=== PATIENT | female | born 1945 | race Caucasian/White ===

== ENCOUNTER 2016-07-08 08:54 | Inpatient (IN) | payer OTHER ==
[2016-07-08] MEDS ORDERED: MOTRIN PO ONE (09:33)
[2016-07-08] MEDS ORDERED: NS 1,000 ML IV ONE ×2 (09:33→11:28)
--- NOTE | 2016-07-08 09:40 | PROVIDER DOCUMENTATION ---
HPI-Fever - General Chief Complaint: Possible Sepsis-D Stated Complaint: POSS UTI Time Seen by Provider: 07/08/16 09:25 Source: patient, family Allergies/Adverse Reactions: Patient Allergies Allergy/AdvReac Type Severity Reaction Status Date / Time meperidine HCl * Allergy RASH Verified 07/08/16 09:49 [From Demerol] Home Medications: Home Medication List Medication Instructions Recorded Confirmed Last Taken Type Acetaminophen [Tylenol] 500 mg PO TID 07/08/16 07/08/16 07/08/16 08:00 History Atorvastatin Calcium [Lipitor] 40 mg PO DAILY 07/08/16 07/08/16 07/07/16 08:00 History Cranberry 400 mg PO BID 07/08/16 07/08/16 07/07/16 17:00 History Duloxetine [Cymbalta] 60 mg PO DAILY 07/08/16 07/08/16 07/07/16 21:00 History Hydrochlorothiazide 25 mg PO DAILY 07/08/16 07/08/16 07/07/16 08:00 History Hydrocodone/Acetaminophen [[place] 10 mg PO 07/08/16 07/07/16 17:00 History 10-325 Tablet] Lansoprazole [Prevacid] 30 mg PO DAILY 07/08/16 07/08/16 07/07/16 06:00 History Lorazepam [Ativan] 1 mg PO BID 07/08/16 07/08/16 07/07/16 21:00 History Meloxicam [Mobic] 7.5 mg PO DAILY 07/08/16 07/08/16 07/07/16 21:00 History Nortriptyline [Pamelor] 25 mg PO TID 07/08/16 07/08/16 07/07/16 17:00 History Pregabalin [Lyrica] 150 mg PO TID 07/08/16 07/08/16 07/07/16 17:00 History - History of Present Illness-Fever Nature of Presenting Problem: Pt is a 71 yof who came to the ED with a cc of high fever. Pt reports her fever was 103 this morning and her gave her 500mg of tylenol and it didn't bring the fever down. Pt reports she had these symptoms last year and she had a UTI. Fever Severity/Quality: reports: greater than 102 F Onset/Duration: reports: just prior to arrival Timing: reports: still present Fever Therapy [employer]: Initiated Tylenol Modifying Factors: improves with: nothing Associated Symptoms: reports: denies symptoms Similar Symptoms Previously?: No Recently seen or treated by another doctor?: No Review of Systems - Adult - REVIEW OF SYSTEMS - ADULT Constitutional: reports: chills, fever. denies: fatique, night sweats Eyes: reports: no symptoms reported Ears, Nose, Mouth & Throat: denies: sinus problem, mouth/dental pain Cardiovascular: denies: edema, poor circulation Respiratory: denies: hemoptysis, wheezing Gastrointestinal: reports: no symptoms reported Genitourinary: reports: no symptoms reported Musculoskeletal: reports: no symptoms reported Integumentary: reports: no symptoms reported Neurological: reports: no symptoms reported Psychiatric: reports: no symptoms reported Endocrine: reports: no symptoms reported Hematologic/Lymphatic: reports: no symptoms reported Allergic/Immunologic: reports: no symptoms reported All Other Systems: Reviewed and Negative Past History - Adult - PAST MEDICAL HISTORY-ADULT Review of Records: reports: Old Records Reviewed, Nursing Assessment Review Physical Exam-General - CONSTITUTIONAL General Appearance: appears well, alert, no apparent distress - EYES Eyes: PERRL/EOMI, pink conjunctivae, fundi clear, no AV nicking - HEAD, EARS, NOSE, MOUTH & THROAT HENMT: normocephalic/atraumatic, moist mucous membranes, normal ENT inspection, TMs normal, pharynx normal, other (dry lips) - NECK Neck: non-tender - RESPIRATORY Respiratory: chest non-tender, lungs clear, normal breath sounds, no pleuratic chest pain, no respiratory distress, no accessory muscle use - CARDIOVASCULAR Cardiovascular: normal peripheral pulses, regular rate, rhythm, no edema, no gallop, no JVD, no murmur - GASTROINTESTINAL (ABDOMEN) Abdominal Exam: normal bowel sounds, non tender, soft, no organomegaly, no pulsatile mass - MUSCULOSKELETAL Back Exam: normal inspection, no CVA tenderness, no vertebral tenderness, CVA tenderness Extremity: normal range of motion, non-tender, normal gait, normal inspection, no pedal edema, no calf tenderness, normal capillary refill - SKIN Integumentary: normal color, warm/dry - NEUROLOGIC Neurologic: grossly normal - PSYCHIATRIC Psych/Mental Status: normal mood/affect, normal thought content, normal thought process, oriented x 3 Progress - PLAN OF CARE/RESULTS Progress/Plan/Lab Results: Vital Signs - 24 hr 07/08/16 09:11 Temperature 103.0 F H Pulse Rate 107 H Respiratory 22 Rate Blood Pressure 133/58 O2 Sat by Pulse 95 Oximetry Orders Category Date Time Status Cardiac Monitoring DIRECTED Care 07/08/16 09:33 Active Saline Loc NOW Care 07/08/16 09:33 Active CHEST-PORTABLE [RAD] Stat Exams 07/08/16 09:33 Ordered BLOOD CULTURE [BLDCUL] Stat Lab 07/08/16 09:33 Uncollected CBC WITH ELECTRONIC DIFF [HEME] Stat Lab 07/08/16 09:33 Uncollected CK PROFILE [SP CHEM] Stat Lab 07/08/16 09:33 Uncollected COMPREHENSIVE METABOLIC PANEL [CHEM] Stat Lab 07/08/16 09:33 Uncollected LACTATE, PLASMA [CHEM] Stat Lab 07/08/16 09:33 Uncollected PROTIME WITH INR [COAG] Stat Lab 07/08/16 09:33 Uncollected PTT [COAG] Stat Lab 07/08/16 09:33 Uncollected TROPONIN T Stat Lab 07/08/16 09:33 Uncollected UA NIMS W/REFLEX CULT [URINALYSIS] Stat Lab 07/08/16 09:33 Uncollected 0.9% Sodium Chloride Inj [Ns] 1,000 ml Med 07/08/16 09:33 Active IV 999 mls/hr Ibuprofen [Motrin] Med 07/08/16 09:33 Discontinued 800 mg PO NOW ONE EKG [EKG] Stat Ther 07/08/16 09:33 Ordered - EKG 1 Time of EKG reading by physician:: 10:56 EKG Read and Signed by:: Chanda Leggett EKG Interpretation (*Must complete 3 of following elements*): Normal Rate: 88 Rhythm: sinus rhythm with premature atrial complexes - CONSULTS/PCP/HOSPITALIST Notification #1 *Consult/PCP/Hospitalist*: Dr. Jimenez Time Discussed: 14:33 Consult Disposition: Admit Departure - Departure Time of Disposition Order: 14:30 DIAGNOSIS: Leukocytosis Qualifiers: Leukocytosis type: unspecified Qualified Code(s): D72.829 - Elevated white blood cell count, unspecified Fever Qualifiers: Fever type: unspecified Qualified Code(s): R50.9 - Fever, unspecified UTI (urinary tract infection) Qualifiers: Urinary tract infection type: site unspecified Hematuria presence: without hematuria Qualified Code(s): N39.0 - Urinary tract infection, site not specified Disposition: ADMITTED INPATIENT Certified Medical Emergency: Emergent Condition: Stable Attestation - Scribe Verification/Attestation Scribe:: Clara Lee Acting as Scribe for:: Chanda Leggett Scribe documention review:: This chart was documented by a scribe and accurately reflects the service the provider performed and the decisions made by the provider.
[2016-07-08 09:51] LABS: MANUAL DIFF NEEDED? NO
[2016-07-08 10:15] LABS: BASO% 0.1 % (0.0-0.8); EOS# 0.01 X1000 (0.0-0.7); EOS% 0.1 % (0.0-10.0); HEMATOCRIT 33.8 % (37.0-47.0); HEMOGLOBIN 11.4 g/dL (12.0-16.0); IMM GRAN# 0.03 X1000 (0.0-0.04); IMM GRAN% 0.2 % (0.0-0.5); LYMPH# 1.43 X1000 (1.2-3.4); LYMPH% 9.1 % (20.5-51.1); MCH 29.8 PG (27-31); MCHC 33.7 g/dL (33-37); MCV 88.5 FL (81-99); MONO# 1.47 X1000 (0.11-0.59); MONO% 9.4 % (1.7-9.3); MPV 11.3 FL (7.4-10.4); NEUT% 81.1 % (42.2-75.2); PLT 187 X1000 (130-400); RBC 3.82 XMIL (4.2-5.4)
[2016-07-08 10:16] LABS: BILIRUBIN URINE NEGATIVE (NEGATIVE); BLOOD URINE MODERATE (NEGATIVE); COLOR YELLOW; GLUCOSE URINE NEGATIVE (NEGATIVE); LEUKOCYTES URINE SMALL (NEGATIVE); NITRITE URINE POSITIVE (NEGATIVE); PH URINE 5.5; PROTEIN URINE 70 mg/dL (NEGATIVE); SP GRAVITY URINE 1.017; TURBIDITY URINE HAZY (CLEAR); URINE MICRO REVIEW NEEDED? NO; URINE SOURCE CLEAN CATCH; UROBILINOGEN URINE NORMAL (NORMAL)
[2016-07-08 10:18] LABS: UR EPITHELIAL CELLS <10 /HPF (<10); URINE BACTERIA 4+ /HPF; URINE CULTURE NEEDED? YES
--- NOTE | 2016-07-08 10:25 | Diag Imaging Result Document ---
PROCEDURE NAME: CHEST-PORTABLE - 07/08/2016 PORTABLE CHEST X-RAY: COMPARISON: None. FINDINGS: The lungs are normally expanded and clear. Heart size and mediastinal contours are normal. No pneumothorax or pleural effusion. IMPRESSION: Negative exam.
[2016-07-08 10:29] LABS: ALBUMIN 3.6 g/dL (3.5-5.0); INR 1.09; POTASSIUM 3.6 mmol/L (3.5-5.1); PROTIME 11.6 Seconds (9.2-11.7); TOTAL BILIRUBIN 0.69 mg/dL (0.20-1.00); TOTAL PROTEIN 6.8 g/dL (6.3-8.3)
[2016-07-08] MEDS ORDERED: LEVAQUIN PO ONE (10:44)
[2016-07-08] MEDS ORDERED: ROCEPHIN 1 GM/NS 50 ML IV ONE (10:44)
[2016-07-08] MEDS ORDERED: NS 2,000 ML ONE (11:25)
--- NOTE | 2016-07-08 12:44 | EKG Report ---
Test Performed on : 07/08/2016 10:56:07 AM Test Reason : Chest Pain Blood Pressure : / mmHG Vent. Rate : 088 BPM Atrial Rate : 088 BPM P-R Int : 152 ms QRS Dur : 086 ms QT Int : 378 ms P-R-T Axes : 040 005 043 degrees QTc Int : 457 ms Sinus rhythm. with premature atrial complexes. Otherwise normal ECG When compared with ECG of 12-OCT-2007 14:25, premature atrial complexes. are now present Unconfirmed Result
[2016-07-08 13:18] LABS: HEMATOCRIT 31.2 % (37.0-47.0); HEMOGLOBIN 10.4 g/dL (12.0-16.0); MCH 30.2 PG (27-31); MCHC 33.3 g/dL (33-37); MCV 90.7 FL (81-99); MPV 10.8 FL (7.4-10.4); RBC 3.44 XMIL (4.2-5.4)
[2016-07-08] MEDS ORDERED: ZOFRAN IV PRN (16:14)
[2016-07-08] MEDS: PAMELOR PO SCH (16:54)
[2016-07-08] MEDS: TYLENOL PO SCH (16:54)
[2016-07-08] MEDS: NS 1,000 ML IV SCH (16:54)
[2016-07-08] MEDS: LYRICA PO SCH (16:54)
[2016-07-08] MEDS: NORCO-10 PO PRN (16:54)
--- NOTE | 2016-07-08 18:27 | HISTORY AND PHYSICAL ---
PRIMARY CARE PROVIDER: Dr. Marco Lei. PRIMARY PAIN DOCTOR: Dr. Rizvi. PRIMARY NEUROLOGIST: Dr. Landry. CHIEF COMPLAINT: Fever and chills. HISTORY OF PRESENT ILLNESS: Ms. Frey is a 71-year-old female who is in no acute distress. She is able to answer questions, most questions appropriately. Apparently she has been having symptoms since Monday night. She started having chills Monday night. Monday she started having more chills so they tried to make an appointment and could not get in by their appointment date. This morning she was found to have some disorientation with a fever of 103.3, so brought her here to [facility] ER. She was found to have a significant urinary tract infection, leukocytosis, and a fever of 103. Other vital signs have been stable. We will admit her to the medical floor for treatment of a urinary tract infection. 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 She had a dental crown fixed 13+ years ago and that is when the pain started. 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 SURGICAL HISTORY: She had a right eyelid weight placed and removed. Hysterectomy. She has had a neurotransmitter, neurostimulator placed and removed. She has had colonoscopies. SOCIAL HISTORY: Denies tobacco, or illicit drug use or alcohol. Lives at home with her . FAMILY HISTORY: Positive for cancer: Ovarian and breast. REVIEW OF SYSTEMS: Fourteen point review of systems were complete and all were negative except for those mentioned in the above HPI. She did state that she felt urinary frequency but denied dysuria or foul-smelling urine. ALLERGIES: Demerol. HOME MEDICATIONS: Ativan 1 mg in the morning, 2 mg at night. Lipitor 40 mg daily. Cranberry 400 mg p.o. twice daily. Cymbalta 60 mg nightly. Hydrochlorothiazide 25 mg p.o. daily. [place] 10 q.i.d. p.r.n. Prevacid 30 mg p.o. daily, Lyrica 150 mg p.o. t.i.d. Mobic 7.5 mg p.o. nightly. Nortriptyline 25 mg p.o. t.i.d. Tylenol 500 mg p.o. t.i.d. LABORATORY DATA: White blood cells 16,000, hemoglobin 10, hematocrit 31, platelet count 144,000. INR 1.09, PTT is 32. Sodium 136, potassium 3.6, BUN 20, creatinine is 1.6. Glucose 131, calcium 9.0, total bilirubin 0.69, AST 22, ALT 11. CK 156. Troponin 0.011. Total protein 6.8, albumin 3.6, lactate 0.9. Urinalysis; 70 protein, moderate blood, positive nitrites, small leukocytes, 10- 20 white blood cells, 4+ bacteria. IMAGING: Chest x-ray negative exam. EKG sinus rhythm with PACs rate of 88, QTc is 457. PHYSICAL EXAM: VITAL SIGNS: Temperature is now 98.6, it was 103 on admission. Heart rate 78, respiratory rate 13, blood pressure 115/60, O2 saturation 93% on room air. Height 5 feet 3 inches, 199 pounds, BMI 35.3. GENERAL: Ms. Frey is a 71-year-old female in no acute distress. Able to answer all questions appropriately. HEENT: Atraumatic, normocephalic. Right facial droop secondary to Valenzuela's palsy in 2006 which is chronic in nature. Mucous membranes are dry. NECK: No JVD or carotid bruits noted. CARDIOVASCULAR: S1, S2. Regular rate and rhythm. No rubs, gallops, murmurs. PULMONARY: Clear to auscultation. Bilateral breath sounds. No accessory muscle use or work of breathing noted. GASTROINTESTINAL: Soft, nontender, nondistended. Positive bowel sounds x4. EXTREMITIES: No edema noted. +2 dorsalis and radial pulses. NEUROLOGIC: Alert and oriented x4. Moves all extremities equally. Right facial droop that is chronic from Valenzuela's palsy in 2006. SKIN: Warm, dry, intact. ASSESSMENT AND PLAN: 1. Urinary tract infection with leukocytosis and significant fever up to 103. Will continue with Rocephin and Levaquin IV. If improves over the next 24 hours may possibly can go home on oral antibiotic regimen. She does have a history of chronic urinary tract infections. We will continue her home cranberry regimen. 2. History of hypertension. Continue home medications but hold the hydrochlorothiazide as are going to give IV fluid hydration. 3. Mild acute kidney injury secondary to dehydration, again with IV fluid hydration. 4. Hyperlipidemia. Continue home medications. 5. Mitral valve prolapse noted. 6. Gastroesophageal reflux disease and gastrointestinal prophylaxis. Continue her home proton pump inhibitor. 7. Atypical right facial pain related to the trigeminal neuralgia group. She follows Dr. Dow with Neurology and Dr. Rizvi with [facility] for a strict regimen to keep her pain at ease. She stays anywhere chronically from a pain level of 4 to 5. Her regimen includes 1 mg in the morning of Ativan and 2 mg at night, Cymbalta 60 mg in the evenings, hydrocodone and acetaminophen 10 mg 1 tab 4 times daily p.r.n., Lyrica 150 mg p.o. 3 times daily, Mobic 7.5 mg p.o. nightly, nortriptyline 25 mg p.o. 3 times daily, and Tylenol 500 mg p.o. 3 times daily. 8. Gastrointestinal prophylaxis. Proton pump inhibitor. 9. Deep venous thrombosis prophylaxis. Lovenox. Dictated by SONYA Gillis for Romain Myles MD
[2016-07-08] MEDS: LIPITOR PO SCH (20:48)
[2016-07-08] MEDS: CYMBALTA PO SCH (20:48)
[2016-07-08] MEDS: MOBIC PO SCH (20:48)
[2016-07-08] MEDS: ATIVAN PO SCH (20:49)
[2016-07-08] MEDS: PATIENT'S OWN MED PO SCH (20:52)
[2016-07-09] MEDS: NORCO-10 PO PRN ×2 (03:58→11:05)
[2016-07-09] MEDS: NS 1,000 ML IV SCH ×2 (04:00→16:18)
[2016-07-09 06:40] LABS: MANUAL DIFF NEEDED? NO
[2016-07-09 06:52] LABS: BASO% 0.1 % (0.0-0.8); EOS# 0.06 X1000 (0.0-0.7); EOS% 0.5 % (0.0-10.0); HEMATOCRIT 29.2 % (37.0-47.0); HEMOGLOBIN 9.7 g/dL (12.0-16.0); IMM GRAN# 0.02 X1000 (0.0-0.04); IMM GRAN% 0.2 % (0.0-0.5); LYMPH# 1.48 X1000 (1.2-3.4); LYMPH% 13.2 % (20.5-51.1); MCH 29.7 PG (27-31); MCHC 33.2 g/dL (33-37); MCV 89.3 FL (81-99); MONO# 0.98 X1000 (0.11-0.59); MONO% 8.8 % (1.7-9.3); MPV 10.9 FL (7.4-10.4); NEUT% 77.2 % (42.2-75.2); PLT 168 X1000 (130-400); RBC 3.27 XMIL (4.2-5.4)
[2016-07-09 06:58] LABS: AGAP 11; ALBUMIN 3.1 g/dL (3.5-5.0); ALKALINE PHOSPHATASE 57 U/L (32-104); BUN 12 mg/dL (8-22); CALCIUM 8.6 mg/dL (8.8-10.2); CHLORIDE 103 mmol/L (98-107); COSMO 280; GOT 17 U/L (10-30); GPT 10 U/L (10-36); MAGNESIUM 1.6 mg/dL (1.5-2.7); POTASSIUM 3.6 mmol/L (3.5-5.1); SODIUM 140 mmol/L (136-145); TCO2 26 mmol/L (25-35); TOTAL BILIRUBIN 0.41 mg/dL (0.20-1.00)
[2016-07-09 06:59] LABS: INR 1.15; PROTIME 12.2 Seconds (9.2-11.7); PTT 37.6 Seconds (22.0-36.0)
[2016-07-09] MEDS: ATIVAN PO SCH ×2 (08:24→20:40)
[2016-07-09] MEDS: TYLENOL PO SCH ×3 (08:24→17:55)
[2016-07-09] MEDS: PAMELOR PO SCH ×3 (08:24→17:55)
[2016-07-09] MEDS: LEVAQUIN 750 MG/D5W 150 ML IV SCH (08:25)
[2016-07-09] MEDS: LYRICA PO SCH ×3 (08:25→18:14)
[2016-07-09] MEDS: LOVENOX SUBQ SCH (08:25)
[2016-07-09] MEDS: PRILOSEC PO SCH (08:25)
[2016-07-09] MEDS: ROCEPHIN 1 GM/NS 50 ML IV SCH (08:25)
[2016-07-09] MEDS: PATIENT'S OWN MED PO SCH ×2 (08:26→20:42)
--- NOTE | 2016-07-09 13:16 | PROGRESS NOTE ---
DATE: 07/09/2016 SUBJECTIVE: Patient reports feeling fine. Denies any chills, fever, nausea or vomiting. OBJECTIVE: Vital Signs: Temperature 98.3 degrees, heart rate 79, respiratory rate 16, blood pressure 151/63, and O2 saturation 97% on room air. General examination: This is a 71-year-old, female, lying in bed in no acute distress. HEENT: Head is normocephalic, atraumatic. Anicteric sclerae and pale conjunctivae. Mucous membranes moist. Neck: Supple. No JVD noted. No carotid bruits. No lymphadenopathy. No thyromegaly. Cardiovascular exam: S1, S2 heard. No murmurs, gallops, or rubs. Regular rate and rhythm. Respiratory exam: Clear bilaterally to auscultation. No work of breathing or using accessory muscles. Abdomen: Soft, nontender to palpation. Bowel sounds present. No organomegaly. Extremities: No clubbing, cyanosis, or edema. Peripheral pulses present in both legs. Neurological exam: Patient alert and oriented x3. Able to move 4 extremities. Cranial nerves 2-12 grossly normal. LABORATORY DATA: White cell count 11.17, hemoglobin 9.7, hematocrit 29.2, platelets 168. INR 1.15 and the BMP is completely unremarkable. ASSESSMENT AND PLAN: 1. Urinary tract infection. Patient is afebrile since admission. Currently, she is on Rocephin and Levaquin. White cell count is almost back to normal. At this point, we will continue with intravenous fluid and the same antibiotic coverage. The patient had a history of chronic urinary tract infections, so we prefer definitely to wait for the results of the urine culture before discharging this patient. She will continue with cranberry juice also. 2. Hypertension. Blood pressure is well controlled. We will continue with the same management. 3. Acute kidney injury. That condition is completely resolved today. 4. Hyperlipidemia. We will continue home medications. 5. Atypical right facial pain related to trigeminal neurology. We will continue with the same home medications. 6. Mitral valve prolapse. Aware. 7. Gastroesophageal reflux disease. Patient is on Protonix.
[2016-07-09] MEDS: LIPITOR PO SCH (20:39)
[2016-07-09] MEDS: MOBIC PO SCH (20:39)
[2016-07-09] MEDS: CYMBALTA PO SCH (20:39)
[2016-07-10] MEDS: NORCO-10 PO PRN ×2 (00:27→08:13)
[2016-07-10] MEDS: NS 1,000 ML IV SCH (03:24)
[2016-07-10 07:36] VITALS: BP 154/71
[2016-07-10] MEDS: ROCEPHIN 1 GM/NS 50 ML IV SCH (08:13)
[2016-07-10] MEDS: LYRICA PO SCH (08:14)
[2016-07-10] MEDS: PRILOSEC PO SCH (08:14)
[2016-07-10] MEDS: ATIVAN PO SCH (08:14)
[2016-07-10] MEDS: TYLENOL PO SCH (08:14)
[2016-07-10] MEDS: LOVENOX SUBQ SCH (08:15)
[2016-07-10] MEDS: PATIENT'S OWN MED PO SCH (08:15)
[2016-07-10] MEDS: PAMELOR PO SCH (08:15)
[2016-07-10] MEDS: LEVAQUIN 750 MG/D5W 150 ML IV SCH (09:16)
--- NOTE | 2016-07-10 21:41 | DISCHARGE SUMMARY ---
ADMISSION DATE: 07/08/2016 DISCHARGE DATE: 07/10/2016 DISCHARGE DIAGNOSES: 1. Urinary tract infection Escherichia coli infection. 2. Hypertension. 3. Acute kidney injury, resolved. 4. Hyperlipidemia. 5. Mitral valve prolapse. 6. Gastroesophageal reflux disease. 7. Atypical right facial pain related to trigeminal neuralgia. CONSULTATIONS: None. HOSPITAL COURSE: This is a 71-year-old female who apparently has been having symptoms since Monday night with chills and fever. She was trying to see her doctor, was not able to get an appointment. Because the date of admission she was found to have fever 103.3 and some disorientation, she was brought to the emergency department here in [facility]. Upon evaluation, she was found to have a significant urinary tract infection and leukocytosis, so she was admitted for further management. The patient is started on ceftriaxone and Levaquin. Patient started doing fine. The patient was also started on IV fluids as well. Next day, she was back to her baseline. So today, we discussed the results from urine culture and it is positive for E. coli pansensitive, so she is going to be discharged in stable condition with oral antibiotics. DISCHARGE PHYSICAL EXAMINATION: Vitals: Temperature 97.6 degrees, heart rate 76, respiratory rate 22, blood pressure 154/71, O2 saturation 100% on room air. General: This is a 71-year-old female lying in bed, in no acute distress. HEENT: Head is normocephalic, atraumatic. Anicteric sclerae and pale conjunctivae. Right facial droop secondary to Valenzuela's palsy in 2006 noted. Mucous membranes moist. Neck: Supple. No JVD noted. No carotid bruits. No lymphadenopathy. No thyromegaly. Cardiovascular: S1, S2 heard. No murmurs, gallops, or rubs. Regular rate and rhythm. Respiratory: Clear bilaterally to auscultation. No work of breathing or using accessory muscles. Abdomen: Soft, nontender to palpation. Bowel sounds present. No organomegaly. Extremities: No clubbing, cyanosis, or edema. Peripheral pulses present in both legs. Neurological: Patient is alert and oriented x3. Right facial droop noted. Moves 4 extremities. DISCHARGE DISPOSITION: To home to self-care. LIST OF MEDICATIONS: 1. The patient is going to be given cephalexin 500 mg 1 tablet p.o. b.i.d. for 7 days. 2. The rest of home medication has not been changed. FOLLOWUP: Marco Lei MD in 1-2 weeks. DISCHARGE TIME: 35 minutes.
--- NOTE | 2016-07-16 20:52 | DISCHARGE SUMMARY ---
ADMISSION DATE: 07/08/2016 DISCHARGE DATE: 07/10/2016 DISCHARGE SUMMARY ADDENDUM: Answer: 1. Sepsis due to urinary tract infection. 2. Metabolic encephalopathy.
== END 2016-07-10 13:01 | disposition home or self-care (01) | DRG 871 ==
LOC: ED 08:54 → 3N 15:47
PROVIDERS: ATTEND Internal Medicine
DX: A41.9 Sepsis, unspecified organism (principal); G93.41 Metabolic encephalopathy; N17.9 Acute kidney failure, unspecified; N39.0 Urinary tract infection, site not specified; R65.20 Severe sepsis without septic shock; I10 Essential (primary) hypertension; B96.20 Unspecified Escherichia coli [E. coli] as the cause of diseases classified elsewhere; E78.5 Hyperlipidemia, unspecified; I34.1 Nonrheumatic mitral (valve) prolapse; K21.9 Gastro-esophageal reflux disease without esophagitis; G50.0 Trigeminal neuralgia; E86.0 Dehydration; G51.0 Bell's palsy; Z80.3 Family history of malignant neoplasm of breast; Z80.41 Family history of malignant neoplasm of ovary; Z79.1 Long term (current) use of non-steroidal anti-inflammatories (NSAID); Z79.891 Long term (current) use of opiate analgesic; Z79.899 Other long term (current) drug therapy
CPT/HCPCS: 71010; 80053; 81001; 82550; 83605; 83735; 84443; 84484; 85025; 85027; 85610; 85730; 87040; 87077; 87088; 87186; 87804; 93005; 96365; J0696; J1650; J7030